=== PATIENT | male | born 1990 | race American Indian/Alaskan Native ===

== ENCOUNTER 2023-11-01 22:32 | Emergency (ER) | payer OTHER ==
[~2023-11-01] VITALS: Ht 177.8 cm; Wt 80.0 kg
[2023-11-01 23:06] VITALS: BP 116/67; PULSE 69; RESP 16; TEMP 97.9; O2SAT 98
[2023-11-01] MEDS ORDERED: LEVE1000 MT (23:24)
[2023-11-01] MEDS: LEVETIRACETAM 500MG TABLET PO ONE (23:43)
== END 2023-11-01 23:44 | disposition home or self-care (01) ==
LOC: ER 22:32
DX: R68.89 Other general symptoms and signs (principal); Z76.0 Encounter for issue of repeat prescription
CPT/HCPCS: 99283

== ENCOUNTER 2023-12-13 18:55 | Emergency (ER) | payer MEDICAID, OTHER ==
[~2023-12-13] VITALS: Ht 177.8 cm; Wt 75.0 kg
[~2023-12-13 18:55] MED LIST: LEVE1000 MT
[2023-12-13 18:58] VITALS: BP 141/73; TEMP 98.5; O2SAT 98
[2023-12-13 19:05] VITALS: PULSE 87; RESP 18; O2SAT 99
[2023-12-13] MEDS ORDERED: LEVE1000 MT (19:17)
== END 2023-12-13 19:31 | disposition home or self-care (01) ==
LOC: ER 18:55
DX: Z76.0 Encounter for issue of repeat prescription (principal); Z86.59 Personal history of other mental and behavioral disorders; Z98.890 Other specified postprocedural states
CPT/HCPCS: 99281

== ENCOUNTER 2024-01-05 16:23 | Emergency (ER) | payer SELFPAY ==
[~2024-01-05] VITALS: Ht 177.8 cm; Wt 118.0 kg
[2024-01-05] MEDS ORDERED: LEVE1000 MT (16:33)
[2024-01-05 16:36] VITALS: BP 126/61; PULSE 63; RESP 16; TEMP 98.3; O2SAT 98
== END 2024-01-05 16:41 | disposition home or self-care (01) ==
LOC: ER 16:23
DX: G40.909 Epilepsy, unspecified, not intractable, without status epilepticus (principal); Z76.0 Encounter for issue of repeat prescription
CPT/HCPCS: 99281

== ENCOUNTER 2024-01-18 15:36 | Emergency (ER) | payer MEDICAID ==
[~2024-01-18] VITALS: Ht 177.8 cm; Wt 85.0 kg
[2024-01-18 15:47] VITALS: O2SAT 96
[2024-01-18 16:15] LABS: CLARITY URINE CLEAR (CLEAR); COLOR URINE YELLOW (YELLOW); GLUCOSE URINE NEGATIVE (NEGATIVE); KETONES URINE NEGATIVE (NEGATIVE); LEUKOCYTE ESTERASE URINE NEGATIVE (NEGATIVE); NITRITE URINE NEGATIVE (NEGATIVE); OCCULT BLOOD URINE NEGATIVE (NEGATIVE); PH URINE 7.5 (4.5-8.0); PROTEIN URINE NEGATIVE (NEGATIVE)
[2024-01-18] MEDS: IPRATROPIUM BROMIDE (0.02%) 0.5MG/2.5ML NEB HHN STA (17:12)
[2024-01-18] MEDS: ALBUTEROL (0.083%) 2.5MG/3ML NEB HHN STA (17:12)
[2024-01-18] MEDS: METHYLPREDNISOLONE SOD SUCC 125MG/2ML (ACT-O-VIAL) IM STA (17:12)
[2024-01-18] MEDS ORDERED: LEVE1000 MT (17:25)
[2024-01-18 18:00] VITALS: BP 110/64; PULSE 74; RESP 16; TEMP 36.66960; O2SAT 99
[2024-01-22 04:09] LABS: CHLAMYDIA TRACHOMATIS NAA Negative (Negative); NEISSERIA GONORRHOEAE NAA Negative (Negative)
== END 2024-01-18 18:05 | disposition home or self-care (01) ==
LOC: ER 15:36
DX: G40.909 Epilepsy, unspecified, not intractable, without status epilepticus (principal)
CPT/HCPCS: 99283; 87491; 87591; 81003; 36415; J2919

== ENCOUNTER 2024-03-26 01:27 | Emergency (ER) | payer MEDICAID, OTHER ==
[~2024-03-26] VITALS: Ht 180.3 cm; Wt 100.0 kg
[2024-03-26 02:03] VITALS: TEMP 97.8; O2SAT 98
[2024-03-26] MEDS: ACETAMINOPHEN 325MG TABLET PO ONE (03:40)
[2024-03-26] MEDS ORDERED: NAPR-681 PO (04:45)
[2024-03-26] MEDS: BACITRACIN ZINC OINT UDPKT TOP ONE (04:48)
[2024-03-26] MEDS: LIDOCAINE HCL/PF 1% 10 MG/ML 5ML VIAL INFIL ONE (04:48)
[2024-03-26 04:57] VITALS: BP 124/69; PULSE 70; RESP 16; O2SAT 98
== END 2024-03-26 04:58 | disposition home or self-care (01) ==
LOC: ER 01:27
DX: S61.511A Laceration without foreign body of right wrist, initial encounter (principal); G40.909 Epilepsy, unspecified, not intractable, without status epilepticus; Z76.0 Encounter for issue of repeat prescription; X58.XXXA Exposure to other specified factors, initial encounter; Y93.89 Activity, other specified; Y92.89 Other specified places as the place of occurrence of the external cause; Y99.8 Other external cause status
CPT/HCPCS: 73110; 12002; 99283; J3490; Z7610

== ENCOUNTER 2024-04-02 18:36 | Emergency (ER) | payer OTHER ==
[~2024-04-02 18:36] MED LIST changes: +NAPR-681 PO
== END 2024-04-02 20:36 | disposition home or self-care (01) ==
LOC: ER 18:36
DX: S01.01XD Laceration without foreign body of scalp, subsequent encounter (principal); R56.9 Unspecified convulsions; X58.XXXD Exposure to other specified factors, subsequent encounter
CPT/HCPCS: 99281